=== PATIENT | female | born 1975 | race African-American/Black ===

== ENCOUNTER 2016-08-18 13:41 | Emergency (ER) | payer OTHER ==
[~2016-08-18] VITALS: Ht 167.6 cm; Wt 94.8 kg
[~2016-08-18 13:41] MED LIST: AUGMENTIN 875 M1 TAB PO; MOTRIN800 MG PO; PERCOCET 325 MG1 TA2 PO
--- NOTE | 2016-08-18 15:36 | ED EAR COMPLAINT ---
History of Present Illness General Chief Complaint: Ear Complaints Stated Complaint: PT IS HAVING PROBLEM WITH HER EARS Source: patient Exam Limitations: no limitations Vital Signs & Intake/Output Vital Signs & Intake/Output Vital Signs Date Time Temp Pulse Resp B/P B/P Pulse O2 O2 Flow FiO2 Mean Ox Delivery Rate 08/18 1614 97.9 80 18 122/86 98 Room Air 08/18 1349 97.8 84 16 117/82 97 Room Air ED Intake and Output 08/19 0000 08/18 1200 Intake Total Output Total Balance Patient 209 lb Weight Allergies Uncoded Allergies: ANIMAL FUR (UNKNOWN 10/27/11) POLLEN (UNKNOWN 10/27/11) Reconcile Medications Amoxicillin/Potassium Clav (Augmentin 875-125 Tablet) 875 MG-125 MG TABLET 1 TAB PO BID OTITIS MEDIA Ciprofloxacin HCl/Dexameth (Ciprodex Otic Suspension) 0.3 %-0.1 % DROPS.SUSP 4 GTT OT BID OTITIS EXTERNA Meloxicam 15 MG TABLET 1 TAB PO DAILY PRN PAIN Triage Note: PT COMPLAINS OF BILATERAL EAR PAIN FOR 4-5 DAYS, STATES THAT SHE NEEDS EARS IRRIGATED Triage Nurses Notes Reviewed? yes Onset: Gradual Duration: constant Timing: recent history Injury Environment: home Severity: moderate Severity Numbers: 5 : No Patient currently breastfeeds: No HPI: Patient is a 40-year-old female who presents emergency room stating that 3-4 days ago she began complaining of bilateral ear pain swelling and decreased hearing sensation where patient thought that she had wax buildup where she was using Debrox where she feels worse. Denies any trauma denies any ear discharge fever chills sore throat neck pain neck stiffness. (ZONIA LOPEZ) Past History Travel History Traveled to [place] past 21 day No Medical History Any Pertinent Medical History? 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 No (ZONIA LOPEZ) Review of Systems Review of Systems Constitutional: Reports: see HPI. EENTM: Reports: see HPI, ear pain. Respiratory: Reports: no symptoms. Cardiovascular: Reports: no symptoms. GI: Reports: no symptoms. Genitourinary: Reports: no symptoms. Musculoskeletal: Reports: no symptoms. Skin: Reports: no symptoms. Neurological/Psychological: Reports: no symptoms. Hematologic/Endocrine: Reports: no symptoms. Immunologic/Allergic: Reports: no symptoms. All Other Systems: Reviewed and Negative (ZONIA LOPEZ) Physical Exam Physical Exam General Appearance: no apparent distress, alert Ears: Bilateral: swelling, Tympanic red. Comments: HEENT: extraocular motion intact, no nystagmus. Pupils equally round and reactive to light and accommodation. Nose is atraumatic. . Pharynx normal. No swelling or edema. Noted tender external anatomy of bilateral ears upon tragus palpation and tenderness Bilateral external auditory canal noted to be swollen and tympanic membrane noted to be red and bulging Neck: Supple, no lymphadenopathy, normal range of motion without pain or tenderness Back: Nontender, no CVA tenderness. Cardiovascular: Regular rate and rhythms no murmurs rubs or gallops, normal JVP Respiratory: Chest nontender. No respiratory distress.breath sounds clear to auscultation bilaterally Extremity: No edema, no calf tenderness to palpation, normal and equal pulses. Neuro: Alert oriented x3, motor sensory normal, Skin: No appreciable rash on exposed skin, skin is warm and dry. Psych: Mood and affect is normal, memory and judgment is normal. (ZONIA LOPEZ) Progress Differential Diagnoses I considered the following diagnoses in my evaluation of the patient: [Otitis media, otitis externa, sinusitis, pharyngitis mastoiditis tympanic membrane rupture] Plan of Care: On examination patient has concerns of bilateral otitis media and otitis externa Initial ED EKG: none (ZONIA LOPEZ) Departure Departure Disposition: HOME OR SELF CARE Condition: Stable Clinical Impression Primary Impression: Otitis media Secondary Impressions: Otitis externa Referrals: CASSIE KENT APRN (PCP/Family) Additional Instructions: As discussed begin the prescription of meloxicam for pain and inflammation. Begin the prescription of Augmentin and Ciprodex for your ear infection. If no better in 3 days follow-up with primary care doctor. Prescription is waiting at [facility]. If symptoms worsen return to emergency room Departure Forms: Customer Survey General Discharge Information Prescriptions: Current Visit Scripts Amoxicillin/Potassium Clav (Augmentin 875-125 Tablet) 1 TAB PO BID #20 TAB Ciprofloxacin HCl/Dexameth (Ciprodex Otic Suspension) 4 GTT OT BID #1 BOT Meloxicam 1 TAB PO DAILY PRN PAIN #14 TAB (ZONIA LOPEZ) PA/DENTIST ATTENDANT Co-Sign Statement Statement: ED Attending supervision documentation- [] I saw and evaluated the patient. I have also reviewed all the pertinent lab results and diagnostic results. I agree with the findings and the plan of care as documented in the PA's/DENTIST ATTENDANT's documentation. [X] I have reviewed the ED Record and agree with the PA's/DENTIST ATTENDANT's documentation. [] Additions or exceptions (if any) to the PAs/DENTIST ATTENDANT's note and plan are summarized below: [] (BONNIE NICHOLS,DERRICK)
[2016-08-18] MEDS ORDERED: CIPRODEX OTIC7.5 ML OT (15:45)
[2016-08-18] MEDS ORDERED: AUGMENTIN 875-1 EACH PO (15:45)
[2016-08-18] MEDS ORDERED: MELOXICAM15 M1 PO (15:46)
[2016-08-18 16:14] VITALS: BP 122/86
== END 2016-08-18 16:16 ==
LOC: ERH 13:41
DX: H66.93 Otitis media, unspecified, bilateral (principal); H60.93 Unspecified otitis externa, bilateral; Z72.0 Tobacco use

== ENCOUNTER 2017-10-20 20:55 | Inpatient (IN) | payer OTHER ==
[~2017-10-20] VITALS: Ht 167.6 cm; Wt 96.6 kg
[~2017-10-20 20:55] MED LIST changes: +AUGMENTIN 875-1 EACH PO; +CIPRODEX OTIC7.5 ML OT; +IBUPROFEN600 M1 PO; +IBUPROFEN800 M1 PO; +MELOXICAM15 M1 PO; +TYLENOL WITH C1 EACH PO
--- NOTE | 2017-10-20 21:34 | ED DYSPNEA/ASTHMA COMPLAINT ---
History of Present Illness General Chief Complaint: General Adult Stated Complaint: "SICK, COUGH, DIFF BREATHING" PER PT Source: patient, old records Exam Limitations: no limitations Vital Signs & Intake/Output Vital Signs & Intake/Output Vital Signs Date Time Temp Pulse Resp B/P B/P Pulse O2 O2 Flow FiO2 Mean Ox Delivery Rate 10/21 0048 96 28 117/74 100 Aerosol Mask 10/21 0015 98 10/20 2215 98 Room Air 10/21 2211 98.1 88 22 115/77 99 Nasal 2.0L Cannula 10/20 2199 Nasal 2.0L Cannula 10/20 2129 30 ED Intake and Output 10/21 0000 10/20 1200 Intake Total 0 Output Total Balance 0 Intake, Oral 0 Patient 200 lb Weight Allergies Uncoded Allergies: ANIMAL FUR (UNKNOWN 10/27/11) POLLEN (UNKNOWN 10/27/11) Reconcile Medications Amoxicillin/Potassium Clav (Augmentin 875-125 Tablet) 875 MG-125 MG TABLET 1 TAB PO BID dental Amoxicillin/Potassium Clav (Augmentin 875-125 Tablet) 875 MG-125 MG TABLET 1 TAB PO BID OTITIS MEDIA Ciprofloxacin HCl/Dexameth (Ciprodex Otic Suspension) 0.3 %-0.1 % DROPS.SUSP 4 GTT OT BID OTITIS EXTERNA Ibuprofen 600 MG TABLET 1 TAB PO TID PRN PAIN with food Ibuprofen 800 MG TABLET 1 TAB PO TID pain Meloxicam 15 MG TABLET 1 TAB PO DAILY PRN PAIN Tylenol With Codeine (Tylenol With Codeine #3 Tablet) 300 MG-30 MG TABLET 1 TAB PO BIDP PRN toothache Triage Note: PT TO TRIAGE FOR COUGH, WHEEZING AND SOB. PT STATES REID HAS HAD COUHG FOR A WEEK BUT WHEN SHE WOKE UP THIS AFTER NOON IT WAS MUCH WORSE. Triage Nurses Notes Reviewed? yes Onset: Morning Duration: hour(s):, continues in ED, getting worse, waxing and waning Timing: recent history Severity: moderate, severe Activities at Onset: rest Prior Episodes/Possible Cause: allergen exposure Modifying Factors: Worsens With: movement. Associated Symptoms: cough, wheezing, weakness LMP (ages 10-50): unknown : No Patient currently breastfeeds: No HPI: The morning prior to admission patient complains of cough productive of mucoid sputum increasing wheezing and shortness of breath that resolved with inhalers and nebulizer treatment. She denies fever chills nausea vomiting diarrhea abdominal pain chest pain headache dysuria rash bleeding. Past History Travel History Traveled to [place] past 21 day No Medical History Any Pertinent Medical History? 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 No Review of Systems Review of Systems Constitutional: Reports: see HPI, weakness. EENTM: Reports: no symptoms. Respiratory: Reports: see HPI, cough, short of breath, sputum production, wheezing. Cardiovascular: Reports: no symptoms. GI: Reports: no symptoms. Genitourinary: Reports: no symptoms. Musculoskeletal: Reports: no symptoms. Skin: Reports: no symptoms. Neurological/Psychological: Reports: no symptoms. Hematologic/Endocrine: Reports: no symptoms. Immunologic/Allergic: Reports: no symptoms. All Other Systems: Reviewed and Negative Physical Exam Physical Exam General Appearance: well developed/nourished, alert, awake, anxious, severe distress, obese Head: atraumatic, normal appearance Eyes: Bilateral: normal appearance, PERRL, EOMI. Ears, Nose, Throat: normal pharynx, normal ENT inspection, hearing grossly normal Neck: normal inspection, supple, full range of motion, no midline tenderness Respiratory: chest non-tender, decreased breath sounds, wheezing, respiratory distress Cardiovascular: regular rate/rhythm, normal peripheral pulses, tachycardia, norml femoral pulses equa Peripheral Pulses: 4+ carotid (R), 4+ carotid (L) Gastrointestinal: normal bowel sounds, soft, non-tender, no organomegaly Extremities: normal inspection, normal capillary refill, normal range of motion, no edema Neurologic/Psych: no motor/sensory deficits, awake, alert, oriented x 3, normal gait, normal mood/affect, 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 No CVA/TIA Diagnosis No Sepsis Present: No Sepsis Focused Exam Completed? No Progress Differential Diagnosis: asthma, bronchitis, COPD, pneumonia Plan of Care: Orders Procedure Date/time Status Nothing by Mouth 10/21 B Active TRC EVALUATION (GEN) 10/22 127 Active OXYGEN SETUP (GEN) 10/22 127 Active Pathway - chart 10/22 127 Active House Staff 10/22 127 Active Code Status 10/22 127 Active VRE ACTIVE SURVIELLANCE 10/22 111 Active ACTIVE SURVEILLANCE NARES 10/21 011 Active URINE DRUGS OF ABUSE 10/21 41 Active URINE 10/21 41 Active Patient Data 10/21 0015 Active Admit to inpatient 10/21 0009 Active MAGNESIUM 10/21 000 Complete COMPREHENSIVE METABOLIC PANEL 10/21 8 Complete CBC WITHOUT DIFFERENTIAL 10/21 8 Complete VTE Mechanical Prophylaxis 10/21 UNK Active Vital Signs 10/21 UNK Active Activity/Ambulation 10/21 UNK Active Intake & Output 10/20 2210 Active Current Medications Sig/Jack Start time Last Medication Dose Stop Time Status Admin Sodium Chloride 1,000 ML DAILY 10/21 0900 AC (Normal Saline 0.9%) 10/22 2218 Laboratory Tests 10/21/17 0030: Anion Gap 13, Estimated GFR > 60, BUN/Creatinine Ratio 12.0, Glucose 123 H, Calcium 9.0, Magnesium 2.5 H, Total Bilirubin 0.3, AST 17, ALT 22, Alkaline Phosphatase 80, Total Protein 6.7, Albumin 3.9, Globulin 2.8, Albumin/Globulin Ratio 1.4, CBC w Diff MAN DIFF ORDERED, RBC 4.47, MCV 86.3, MCH 29.3, MCHC 33.9, RDW 13.4, MPV 8.5, Gran % 89.7 H, Lymphocytes % 9.1 L, Monocytes % 0.8 L, Eosinophils % 0.2, Basophils % 0.2, Absolute Granulocytes 11.1 H, Segmented Neutrophils 85 H, Absolute Lymphocytes 1.1 L, Lymphocytes 14 L, Monocytes 1 L, Absolute Monocytes 0.1, Absolute Eosinophils 0, Absolute Basophils 0, Platelet Estimate ADEQUATE, Normocytic RBCs VERIFIED, Normochromic RBCs VERIFIED , Fld Total RBCs Counted 100 Microbiology 10/22 111 UPPER RESP: Surveillance Culture - ORD 10/22 111 GI: Surveillance Culture - ORD Diagnostic Imaging: Viewed by Me: Radiology Read. Discussed w/RAD: Radiology Read. CXR Impression: Expiratory chest x-ray. Allowing for the low inspiration there is no acute abnormality. A follow-up PA lateral view of chest would be helpful. Initial ED EKG: none Rhythm Strip: sinus tachycardia Departure Departure Disposition: STILL A PATIENT Condition: Critical Clinical Impression Primary Impression: Status asthmaticus Referrals: Dinorah Grant APRN (PCP/Family) Departure Forms: Customer Survey General Discharge Information Admission Note Spoke With: Komal Barlow MD Documentation of Exam: Documentation of any treatments & extenuating circumstances including Concerns Regarding Discharge (functional status, medication knowledge or non-compliance, living conditions, etc.) that warrant an admission rather than observation: Serial beta agonist nebs IV steroids IV fluids ICU monitoring pulmonary evaluation continuing care discharge planning Critical Care Note Critical Care Note Critical Care Time: 30-74 min (45)
--- NOTE | 2017-10-20 23:28 | RADIOLOGY REPORT ---
EXAMINATION: XR PORTABLE CHEST CLINICAL INFORMATION: Cough and wheezing. COMPARISON: Chest x-ray 11/28/2016 TECHNIQUE: Portable frontal view of the chest was obtained. FINDINGS: Lung volume is low causing crowding of the bronchovascular markings, particularly at the lung bases. There is no focal consolidation allowing for the low respiratory effort. No pulmonary vascular congestion. There is no pleural effusion. IMPRESSION: Expiratory chest x-ray. Allowing for the low inspiration there is no acute abnormality. A follow-up PA lateral view of chest would be helpful.
--- NOTE | 2017-10-21 00:19 | History & Physical ---
DavidedemetriusleomairaMurtaza 10/21/17 0019: General Information and HPI MD Statement: I have seen and personally examined LISA OLIVAREZ and documented this H&P. The patient is a 42 year old F who presented with a patient stated chief complaint of [shortness of breath]. Source of Information: patient, old records Exam Limitations: clinical condition History of Present Illness: 42-year-old woman current heavy smoker, not on regular meds, with past medical history significant for asthma diagnosed in childhood and severe seasonal allergies coming in for evaluation of worsening shortness of breath since the past 1 week. Apparently she has been having worsening nonproductive cough since the past 1 week, and she is also been slowly feeling worsening chest tightness due to the increasing humidity and has been using her albuterol and her nebs more frequently over this past week. Prior to this she is only needed to use them every 1-2 months. States that her asthma has been very controlled and she follows up with her TRIPE SCRAPER every 4-6 months. Denies any history of intubation, ICU admission, daily aspirin intake, fever, chills, sick contacts. Allergies/Medications Allergies: Uncoded Allergies: ANIMAL FUR (UNKNOWN 10/27/11) POLLEN (UNKNOWN 10/27/11) Home Med list Amoxicillin/Potassium Clav (Augmentin 875-125 Tablet) 875 MG-125 MG TABLET 1 TAB PO BID dental Amoxicillin/Potassium Clav (Augmentin 875-125 Tablet) 875 MG-125 MG TABLET 1 TAB PO BID OTITIS MEDIA Ciprofloxacin HCl/Dexameth (Ciprodex Otic Suspension) 0.3 %-0.1 % DROPS.SUSP 4 GTT OT BID OTITIS EXTERNA Ibuprofen 600 MG TABLET 1 TAB PO TID PRN PAIN with food Ibuprofen 800 MG TABLET 1 TAB PO TID pain Meloxicam 15 MG TABLET 1 TAB PO DAILY PRN PAIN Tylenol With Codeine (Tylenol With Codeine #3 Tablet) 300 MG-30 MG TABLET 1 TAB PO BIDP PRN toothache Compliance With Home Meds: GOOD Past History Travel History Traveled to [place] past 21 day No Medical History Neurological: NONE EENT: NONE Cardiovascular: hyperlipidemia Respiratory: asthma Gastrointestinal: NONE Hepatic: NONE Renal: NONE Musculoskeletal: DDD Psychiatric: NONE Endocrine: NONE Blood Disorders: anemia Cancer(s): NONE 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 MOTHER (stroke). Psychosocial History Where do you live? Home Who Do You Live With? self Smoking Status: Current Everyday Smoker ETOH Use: denies use Illicit Drug Use: denies illicit drug use Review of Systems Review of Systems Constitutional: Reports: see HPI. Exam & Diagnostic Data Last 24 Hrs of Vital Signs/I&O Vital Signs Date Time Temp Pulse Resp B/P B/P Pulse O2 O2 Flow FiO2 Mean Ox Delivery Rate 10/21 0048 96 28 117/74 100 Aerosol Mask 10/21 0015 98 10/20 2214 98 Room Air 10/21 2211 98.1 88 22 115/77 99 Nasal 2.0L Cannula 10/20 2199 Nasal 2.0L Cannula 10/20 2129 30 Intake & Output 10/21 0800 10/21 0000 10/20 1600 Intake Total 0 Output Total Balance 0 Intake, Oral 0 Patient 200 lb Weight Physical Exam General Appearance Alert, Oriented X3, Moderate Distress HEENT Atraumatic, PERRLA, EOMI Cardiovascular Regular Rate, Normal S1, Normal S2 Lungs audible expiratory wheezes, diffuse expiratory coarse wheeze Abdomen Normal Bowel Sounds, Soft, No Tenderness Extremities No Edema Diagnostic Data CXR Results SERVICE DATE: 10/20/17 EXAM TYPE: RAD - XRY-PORTABLE CHEST XRAY FINDINGS: Lung volume is low causing crowding of the bronchovascular markings, particularly at the lung bases. There is no focal consolidation allowing for the low respiratory effort. No pulmonary vascular congestion. There is no pleural effusion. IMPRESSION: Expiratory chest x-ray. Allowing for the low inspiration there is no acute abnormality. A follow-up PA lateral view of chest would be helpful. Assessment/Plan Assessment: 42-year-old woman current heavy smoker, not on regular meds, with past medical history significant for asthma diagnosed in childhood and severe seasonal allergies coming in for evaluation of worsening shortness of breath since the past 1 week. CBCs significant for mild leukocytosis with left shift and no bandemia. Non-anion gap metabolic acidosis likely secondary to compensation. ED course: Assessment and plan: status asthmaticus likely secondary to environmental triggers We will admit to ICU for close monitoring as she is clinically in moderate respiratory distress unable to complete sentences. Vitals per protocol TRC/ATC nebs, follow daily peak flows We will continue with IV Solu-Medrol 60 mg twice daily Keep n.p.o. for now and reassess once clinically improved [facility] consult in am f/up IgE and CXR Apparently she had sleep study done about 1 month ago, and she does not know the results of. She currently does not follow a sql developer dba DVT prophylaxis with Lovenox Full code As Ranked By This Provider Problem List: 1. Status asthmaticus Core Measures/Misc (12/13) Acute Coronary Syndrome ACS Diagnosis: No Congestive Heart Failure Congestive Heart Failure Diagnosis No Cerebrovascular Accident CVA/TIA Diagnosis: No VTE (View Protocol) VTE Risk Factors Age>40 No Mechanical VTE Prophylaxis d/t N/A MechProphylax Ordered No VTE Pharm Prophylaxis d/t NA PharmProphylax ordered Sepsis (View protocol) Sepsis Present: No If YES complete Sepsis Event Note If YES complete Sepsis Event Note Komal Barlow MD 10/21/17 0331: Core Measures/Misc (12/13) Sepsis (View protocol) If YES complete Sepsis Event Note If YES complete Sepsis Event Note Attending MD Review Statement Attending Statement Attending MD Statement: examined this patient, discuss w/resident/PA/MANAGER SALT, agreed w/resident/PA/MANAGER SALT, reviewed EMR data (avail) Attending Assessment/Plan: 42F PMH asthma (never been intubated, hospitalized as a teenager), active smoker presenting with 1 day of progressive shortness of breath and wheezing consistent with asthma attack. No sick contacts or recent travel. Has had a dry cough for a week and felt ill, given Augmentin by PCP with no improvement. Uses nebulizer at home also with no improvement. Afebrile, stable vitals. Received 6 nebulizer treatments in ER, still significant wheezing and dyspnea. Plan: ICU, continuous nebulizer treatment, Solumedrol, critical care consult, repeat CXR, check IgE, sputum culture.
[2017-10-21 00:42] LABS: ABSOLUTE BASOPHIL COUNT 0 /CUMM (0.0-0.2); ABSOLUTE EOSINOPHIL COUNT 0 /CUMM (0.0-0.7); ABSOLUTE GRANULOCYTE CT 11.1 /CUMM (1.4-6.5); ABSOLUTE LYMPH COUNT 1.1 /CUMM (1.2-3.4); ABSOLUTE MONOCYTE COUNT 0.1 /CUMM (0.10-0.60); BASOPHIL % 0.2 % (0.0-2.0); EOSINOPHIL % 0.2 % (0-5); GRANULOCYTE % 89.7 % (42.2-75.2); HEMATOCRIT 38.6 % (37-47); MEAN CORPUSCULAR HGB 29.3 PG (27.0-31.0); MEAN CORPUSCULAR HGB CONC 33.9 G/DL (33.0-37.0); MEAN CORPUSCULAR VOLUME 86.3 FL (81.0-99.0); MEAN PLATELET VOLUME 8.5 FL (7.4-10.4); PLATELET COUNT 368 /CUMM (130-400); RBC DISTRIBUTION WIDTH 13.4 % (11.5-14.5); RED BLOOD CELL CT 4.47 /CUMM (4.20-5.40); WHITE BLOOD CELL COUNT 12.3 /CUMM (4.8-10.8)
[2017-10-21 02:00] VITALS: BP 130/70
[2017-10-21 08:00] VITALS: BP 120/68
[2017-10-21 08:22] LABS: ABSOLUTE BASOPHIL COUNT 0 /CUMM (0.0-0.2); ABSOLUTE EOSINOPHIL COUNT 0 /CUMM (0.0-0.7); ABSOLUTE GRANULOCYTE CT 13.1 /CUMM (1.4-6.5); ABSOLUTE LYMPH COUNT 0.5 /CUMM (1.2-3.4); ABSOLUTE MONOCYTE COUNT 0 /CUMM (0.10-0.60); BASOPHIL % 0 % (0.0-2.0); EOSINOPHIL % 0 % (0-5); GRANULOCYTE % 95.8 % (42.2-75.2); HEMATOCRIT 36.3 % (37-47); MEAN CORPUSCULAR HGB 29.2 PG (27.0-31.0); MEAN CORPUSCULAR HGB CONC 33.2 G/DL (33.0-37.0); MEAN CORPUSCULAR VOLUME 87.8 FL (81.0-99.0); MEAN PLATELET VOLUME 9.1 FL (7.4-10.4); PLATELET COUNT 338 /CUMM (130-400); RBC DISTRIBUTION WIDTH 13.5 % (11.5-14.5); RED BLOOD CELL CT 4.14 /CUMM (4.20-5.40); WHITE BLOOD CELL COUNT 13.7 /CUMM (4.8-10.8)
--- NOTE | 2017-10-21 08:54 | PN- Resident CRCU ---
Arslan NICHOLS,[facility] 10/21/17 0853: Subjective HPI/CRCU Issues: Asthma Exacerbation 24 Hour Events: No acute events overnight. Patient reports an improvement in her breathing with less wheezing but still feels significant short of breath with ambulation. Objective Vital Signs & I&O Last 8 Hrs of Vitals and I&O: Intake & Output 10/21 1600 Intake Total Output Total Balance Patient 207 lb Weight Weight Bed scale Measurement Method Exam General Appearance: alert, awake, moderate distress Head: atraumatic, normal appearance Respiratory: normal breath sounds, chest non-tender, mild wheezing Cardiovascular: regular rate/rhythm Gastrointestinal: soft, non-tender Extremities: no edema Cranial Nerves: normal hearing, normal speech Skin: intact, normal color Skin Temp/Moisture Exam: Warm/Dry Sepsis Skin Exam (color): Normal for Ethnicity Current Medications: Current Medications Sig/Jakc Start time Last Medication Dose Route Stop Time Status Admin Acetaminophen 1,000 MG ONCE ONE 10/21 0630 DC 10/21 N/A 1 UNIT IV 10/21 0644 0633 Al Hydroxide/Mg 30 ML ONCE ONE 10/21 1200 AC Hydroxide PO 10/21 1201 Albuterol Sulfate 3 ML EVERY 4 HRS/AWAKE 10/21 1200 AC INH Albuterol Sulfate 3 ML Q4H PRN 10/21 0215 DC 10/21 INH 0908 Albuterol Sulfate 2 PUF Q4 PRN 10/21 0200 AC INH Albuterol Sulfate 6 ML ONCE ONE 10/21 0015 DC 10/21 INH 10/21 0016 0014 Albuterol Sulfate 3 ML ONCE ONE 10/20 2245 DC 10/20 INH 10/20 2246 2302 Albuterol Sulfate 3 ML ONCE ONE 10/20 2145 DC 10/20 INH 10/20 2145 2140 Albuterol Sulfate 3 ML ONCE ONE 10/20 2130 DC 10/20 INH 10/20 2130 2134 Albuterol Sulfate 3 ML ONCE ONE 10/20 2130 DC 10/20 INH 10/20 2130 2130 Calcium Carbonate 500 MG ONCE ONE 10/21 1200 AC PO 10/21 1201 Enoxaparin Sodium 40 MG DAILY 10/21 0900 AC 10/21 SC 0915 Ipratropium [place] 2.5 ML EVERY 4 HRS/AWAKE 10/21 1200 AC INH Ipratropium [place] 2.5 ML ONCE ONE 10/20 2130 DC 10/20 INH 07/25 2131 2133 Ketorolac 30 MG ONCE ONE 10/21 0945 DC 10/21 Tromethamine IV 10/21 0946 1006 Ketorolac 0 .STK-MED ONE 10/21 0023 DC Tromethamine .ROUTE Ketorolac 30 MG ONCE ONE 10/21 0015 DC 10/21 Tromethamine IV 10/21 0016 0028 Magnesium Sulfate 1 GM Q2H 10/20 2200 DC 10/20 Dextrose/Water 100 ML IV 10/21 0029 2254 Methylprednisolone 60 MG Q8 10/21 1400 AC IV Methylprednisolone 60 MG Q12 10/21 0156 DC 10/21 IV 0916 Methylprednisolone 0 .STK-MED ONE 10/20 2145 DC .ROUTE Methylprednisolone 125 MG ONCE ONE 10/20 2130 DC 10/20 IV 10/20 2131 2154 Sodium Chloride 1,000 ML DAILY 10/21 0900 AC 10/21 IV 10/22 2219 0300 Sodium Chloride 1,000 ML BOLUS ONE 10/20 2130 DC 10/20 IV 10/20 2229 2154 Impression/Plan Impression/Problem List Impression: 42-year-old woman current heavy smoker, not on regular meds, with past medical history significant for asthma diagnosed in childhood and severe seasonal allergies coming in for evaluation of worsening shortness of breath since the past 1 week. Assessment: 1. Asthma Exacerbation Plan: * Continue monitoring in the ICU for now. * Increase Solu-Medrol to 80mg q8. * TRC/nebs as needed. * IgE levels - pending. * Sputum culture if able to provide a sample. * PPI * Diet: Regular * DVT Prophylaxis: SC Lovenox * Code: Full Code Problem List: 1. Asthma with exacerbation Pain Ratin Tomorrow's Labs & Rationales: CBC, BEP Preston NICHOLS,[facility] 10/21/17 1332: Impression/Plan Plan DVT/Prophylaxis: pharmacological Attending MD Review Statement Attending Sign Off Attending Cosign Statement: I have: examined this patient, reviewed [facility] EMR data, personally reviewd images, discussd w/resident/PA/LAB SCIENTIST, discussed mgmt plan w/valerio, discussed mgmt plan w/CM, discussed mgmt plan w/pt, agreed w/resident/PA/LAB SCIENTIST, amended to note. Other Findings: Seen and examined independently Exam as noted above SIGNIFICANT DATA Chest x-ray no significant. Previous chest x-ray was also unremarkable and in 2017 Blood work showed an anion gap of 15 bicarbonate was low however. Her tox screen was positive for marijuana white count was 13.7 previously she did have 6.2% eosinophils Previous cystic fibrosis gene panel was unremarkable IgE is pending Previous full pulmonary function tests showed mild obstructive lung disease with a reversible component suggestive of asthma with air trapping and hyperinflation diffusion capacity is normal IMPRESSION This is a lady with ongoing significant smoking with history of asthma since childhood who does seem to smoke marijuana as well, was on NSAIDs at home, not compliant with her regular outpatient asthma medicines comes here with Acute severe asthma. No history suggestive of active infection. May be worsening extrinsic asthma as she has had previous eosinophilia. 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
[2017-10-21 12:00] VITALS: BP 138/76
--- NOTE | 2017-10-21 14:39 | RADIOLOGY REPORT ---
EXAMINATION: XR PORTABLE CHEST CLINICAL INFORMATION: Cough, acute asthma exacerbation. Suspected pneumonia. COMPARISON: 11/28/2016 and 10/20/2017. TECHNIQUE: Portable frontal 80 degrees view of the chest was obtained. FINDINGS: Linear airspace opacity is noted at right lower, infrahilar medial lung field, may represent pneumonia. The remainder of the lung newsome are clear. The heart size is within normal limits. There is no pleural effusion present. The visualized upper abdomen is unremarkable. IMPRESSION: Linear airspace opacity at right infrahilar medial lung field, may represent atelectasis, infiltrate or combination thereof. Follow-up radiograph to document resolution is recommended.
[2017-10-21 16:00] VITALS: BP 124/60
[2017-10-21 20:00] VITALS: BP 130/68
[2017-10-22] VITALS: BP 126/80
[2017-10-22 06:32] LABS: ABSOLUTE BASOPHIL COUNT 0 /CUMM (0.0-0.2); ABSOLUTE EOSINOPHIL COUNT 0 /CUMM (0.0-0.7); ABSOLUTE LYMPH COUNT 0.8 /CUMM (1.2-3.4); EOSINOPHIL % 0 % (0-5)
--- NOTE | 2017-10-22 07:09 | PN- Resident CRCU ---
Subjective HPI/CRCU Issues: Asthma Exacerbation 24 Hour Events: No acute events overnight. She feels her breathing is better but currently complains of a severe headache due to her migraine. Objective Vital Signs & I&O Last 8 Hrs of Vitals and I&O: . Exam General Appearance: well developed/nourished, alert, awake, moderate distress Head: atraumatic, normal appearance Respiratory: normal breath sounds, chest non-tender, mild wheezing Cardiovascular: regular rate/rhythm Gastrointestinal: soft, non-tender Extremities: no edema Cranial Nerves: normal hearing, normal speech Skin: intact, normal color Skin Temp/Moisture Exam: Warm/Dry Sepsis Skin Exam (color): Normal for Ethnicity Current Medications: Current Medications Sig/Jack Start time Last Medication Dose Route Stop Time Status Admin Acetaminophen 1,000 MG ONCE ONE 10/22 0800 DC 10/22 N/A 1 UNIT IV 10/22 0814 0816 Acetaminophen 1,000 MG .STK-MED ONE 10/21 2313 DC IV 10/21 2314 Acetaminophen 1,000 MG ONCE ONE 10/21 1615 DC 10/21 PO 10/21 1616 1624 Acetaminophen/ 1 TAB ONCE ONE 10/22 0745 DC Butalbital/Caffeine PO 10/22 0746 Al Hydroxide/Mg 30 ML ONCE ONE 10/21 1200 DC 10/21 Hydroxide PO 10/21 1201 1241 Albuterol Sulfate 3 ML EVERY 4 HRS/AWAKE 10/21 1200 AC 10/22 INH 0910 Albuterol Sulfate 3 ML Q4H PRN 10/21 0215 DC 10/21 INH 0908 Albuterol Sulfate 2 PUF Q4 PRN 10/21 0200 AC INH Benzonatate 100 MG TID 10/21 2220 AC 10/22 PO 0652 Calcium Carbonate 500 MG ONCE ONE 10/21 1200 DC 10/21 PO 10/21 1201 1241 Enoxaparin Sodium 40 MG DAILY 10/21 0900 10/22 SC 0857 Guaifenesin/Codeine 10 ML Q4P PRN 10/22 0845 AC Phosphate PO Ibuprofen 800 MG ONCE PRN 10/22 0415 AC 10/22 PO 0422 Ibuprofen 800 MG .STK-MED ONE 10/21 2154 DC PO 10/21 2155 Ibuprofen 800 MG ONCE ONE 10/21 2030 DC 10/21 PO 10/21 2030 215 Ipratropium [place] 2.5 ML EVERY 4 HRS/AWAKE 10/21 1200 AC 10/22 INH 0909 Ketorolac 30 MG ONCE ONE 10/21 0945 DC 10/21 Tromethamine IV 10/21 0946 1006 Melatonin 5 MG AT BEDTIME 10/21 2100 AC 10/21 PO 2156 Methylprednisolone 60 MG 0900,1700,0100 10/21 1700 DC IV Methylprednisolone 80 MG 0900,1700,0100 10/21 1700 AC 10/22 IV 0857 Methylprednisolone 60 MG Q8 10/21 1400 DC IV Methylprednisolone 60 MG Q12 10/21 0156 DC 10/21 IV 0916 Omeprazole 40 MG DAILY AC 10/21 1350 AC 10/22 PO 0651 Sodium Chloride 1,000 ML DAILY 10/21 0900 DC 10/21 IV 10/22 2219 0300 Impression/Plan Impression/Problem List Impression: 42-year-old woman current heavy smoker, not on regular meds, with past medical history significant for asthma diagnosed in childhood and severe seasonal allergies coming in for evaluation of worsening shortness of breath since the past 1 week. Assessment: 1. Asthma Exacerbation Plan: * Stable to be downgraded to general medicine floor today. * Reduce Solu-Medrol to 60mg q8. * TRC/nebs as needed. * IgE levels - pending. * Sputum culture if able to provide a sample. * PPI * Tessalon pearls and Robitussin for cough prn. * Diet: Regular * DVT Prophylaxis: SC Lovenox * Code: Full Code Problem List: 1. Asthma with exacerbation Pain Ratin Tomorrow's Labs & Rationales: none Plan DVT/Prophylaxis: pharmacological
[2017-10-22 07:15] LABS: ABSOLUTE GRANULOCYTE CT 27.9 /CUMM (1.4-6.5); ABSOLUTE MONOCYTE COUNT 0.5 /CUMM (0.10-0.60); BASOPHIL % 0 % (0.0-2.0); HEMATOCRIT 37.2 % (37-47); MEAN CORPUSCULAR HGB 29.1 PG (27.0-31.0); MEAN CORPUSCULAR HGB CONC 32.8 G/DL (33.0-37.0); MEAN CORPUSCULAR VOLUME 88.6 FL (81.0-99.0); MEAN PLATELET VOLUME 9.3 FL (7.4-10.4); PLATELET COUNT 349 /CUMM (130-400); RBC DISTRIBUTION WIDTH 13.8 % (11.5-14.5)
[2017-10-22 07:30] LABS: WHITE BLOOD CELL COUNT 29.3 /CUMM (4.8-10.8)
[2017-10-22 07:42] LABS: GRANULOCYTE % 95.2 % (42.2-75.2)
[2017-10-22 08:00] VITALS: BP 110/70
--- NOTE | 2017-10-22 08:23 | PN- CRCU ---
Subjective HPI/Critical Care Issues: The patient is awake and alert. She reports feeling significantly improved. She does complain of a migraine headache which she has had at home in the past. Her coughing, shortness of breath and wheezing are improved. There were no overnight events reported. Objective Current Medications: Current Medications Sig/Jack Start time Last Medication Dose Route Stop Time Status Admin Acetaminophen 1,000 MG ONCE ONE 10/22 0800 DC 10/22 N/A 1 UNIT IV 10/22 0814 0816 Acetaminophen 1,000 MG .STK-MED ONE 10/21 2313 DC IV 10/21 2314 Acetaminophen 1,000 MG ONCE ONE 10/21 1615 DC 10/21 PO 10/21 1616 1624 Acetaminophen/ 1 TAB ONCE ONE 10/22 0745 DC Butalbital/Caffeine PO 10/22 0746 Al Hydroxide/Mg 30 ML ONCE ONE 10/21 1200 DC 10/21 Hydroxide PO 10/21 1201 1241 Albuterol Sulfate 3 ML EVERY 4 HRS/AWAKE 10/21 1200 10/22 INH 0430 Albuterol Sulfate 3 ML Q4H PRN 10/21 0215 DC 10/21 INH 0908 Albuterol Sulfate 2 PUF Q4 PRN 10/21 0200 AC INH Benzonatate 100 MG TID 10/21 2220 AC 10/22 PO 0652 Calcium Carbonate 500 MG ONCE ONE 10/21 1200 DC 10/21 PO 10/21 1201 1241 Enoxaparin Sodium 40 MG DAILY 10/21 0900 10/21 SC 0915 Ibuprofen 800 MG ONCE PRN 10/22 0415 10/22 PO 0422 Ibuprofen 800 MG .STK-MED ONE 10/21 2154 DC PO 10/21 2155 Ibuprofen 800 MG ONCE ONE 10/21 2030 DC 10/21 PO 10/21 2031 2157 Ipratropium [place] 2.5 ML EVERY 4 HRS/AWAKE 10/21 1200 AC 10/22 INH 0430 Ketorolac 30 MG ONCE ONE 10/21 0945 MA 10/21 Tromethamine IV 10/21 0946 1006 Melatonin 5 MG AT BEDTIME 10/21 2100 AC 10/21 PO 2156 Methylprednisolone 60 MG 0900,1700,0100 10/21 1700 DC IV Methylprednisolone 80 MG 0900,1700,0100 10/21 1700 10/22 IV 0005 Methylprednisolone 60 MG Q8 10/21 1400 DC IV Methylprednisolone 60 MG Q12 10/21 0156 DC 10/21 IV 0916 Omeprazole 40 MG DAILY AC 10/21 1350 AC 10/22 PO 0651 Sodium Chloride 1,000 ML DAILY 10/21 0900 DC 10/21 IV 10/22 2219 0300 Vital Signs & I&O Last 24 Hrs of Vitals and I&O: Vital Signs Date Time Temp Pulse Resp B/P B/P Pulse O2 O2 Flow FiO2 Mean Ox Delivery Rate 10/22 0451 99 Room Air 10/22 0400 95 Room Air 10/22 0000 98 Room Air 10/22 0000 98.4 100 22 126/80 98 Room Air 10/21 2000 97.8 94 18 130/68 98 Room Air 10/21 1602 97 Room Air Room Air 10/21 1600 98.0 100 18 124/60 94 Room Air 10/21 1200 98.0 100 24 138/76 96 Room Air 10/21 1109 Room Air 10/21 0840 97 Room Air Intake & Output 10/22 1600 10/22 0800 10/22 0000 Intake Total 240 920 Output Total Balance 240 920 Intake, Oral 240 920 Patient 213 lb Weight Weight Bed scale Measurement Method Exam General Appearance: no apparent distress, alert, awake, comfortable Head: atraumatic, normal appearance Neck: supple Respiratory: no respiratory distress, wheezing Cardiovascular: regular rate/rhythm Abdomen: normal bowel sounds, soft, non-tender Extremities: no edema Skin: intact, normal color, warm/dry Results Last 24 Hrs of Lab Results: Laboratory Tests 10/22/17 0512: RBC 4.20, MCV 88.6, MCH 29.1, MCHC 32.8 L, RDW 13.8, MPV 9.3, Gran % 95.2 H, Lymphocytes % 2.9 L, Monocytes % 1.9, Eosinophils % 0, Basophils % 0, Absolute Granulocytes 27.9 H, Absolute Lymphocytes 0.8 L, Absolute Monocytes 0.5, Absolute Eosinophils 0, Absolute Basophils 0 10/22/17 0357: Anion Gap 16, Estimated GFR > 60, BUN/Creatinine Ratio 12.0, Magnesium 2.3 Impression/Plan Impression/Plan Impression/Plan: 1. Asthma exacerbation. 2. Headache without any neurologic issues. Recommendations: * Reduce Solu-Medrol to 60mg q8. * TRC/nebs as needed. * Follow up IgE levels. * Sputum culture if able to provide a sample. * PPI. * Tessalon pearls and Robitussin for cough prn. * Diet: Regular. * DVT Prophylaxis: SC Lovenox. * Code: Full Code. * Stable to be downgraded to general medicine floor today.
[2017-10-22 15:43] VITALS: BP 124/92
[2017-10-22 22:03] VITALS: BP 130/92
[2017-10-23 06:27] VITALS: BP 134/94
--- NOTE | 2017-10-23 07:35 | PN- Housestaff ---
See Addendum Subjective Follow-up For: Status Asthamticus Subjective: No acute events overnight, afebrile. Patient contiues to have dry cough, says robitussim with codeine helps but only lasts for about 1 hour or so, cough is leading to abdominal muscle, back muscle and rib pain. Review of Systems Constitutional: Reports: see HPI. Objective Last 24 Hrs of Vital Signs/I&O Vital Signs Date Time Temp Pulse Resp B/P B/P Pulse O2 O2 Flow FiO2 Mean Ox Delivery Rate 10/23 0627 98.2 92 20 134/94 95 10/23 0152 97 Room Air 10/22 2203 99.4 92 20 130/92 97 Room Air 10/22 1611 98 Room Air 10/22 1600 Room Air 10/22 1543 98.7 107 25 124/92 97 10/22 1200 98 Room Air 10/22 0910 98 Room Air Room Air 10/22 0800 98 Room Air 10/22 0800 98.0 84 20 110/70 98 Room Air Intake & Output 10/23 0800 10/23 0000 10/22 1600 Intake Total 1080 Output Total Balance 1080 Intake, IV 120 Intake, Oral 960 Physical Exam General Appearance: Alert, Oriented X3, Cooperative, Mild Distress HEENT: Atraumatic, EOMI Cardiovascular: Regular Rate, Normal S1, Normal S2 Lungs: Normal Air Movement, mild expiratory wheezing noted throughout lung newsome Abdomen: Normal Bowel Sounds, Soft, No Tenderness Assessment/Plan Assessment: 42-year-old woman current heavy smoker, not on regular meds, with past medical history significant for asthma diagnosed in childhood and severe seasonal allergies coming in for evaluation of worsening shortness of breath since the past 1 week. Problem List: 1. Asthma Exacerbation 2. Leukocytosis #Asthma Exacerbation: History of asthma, severe exacerbation due to environmental factors. Elevated (253) IgE levels. -Continue steroid taper -add symbicort 160/2.5mcg 2 puffs BID -Add singular 10mg daily -continue TRC/neds as needed -Continue Robitussim w/ Codeine Q2 #Leukocytosis: Recent elevation in WBC up to 29.3, up from 12.3 at admission. most likely 2/2 increased steroid administration -Continue to monitor CBC Diet: Regular DVT Prophylaxis: SC Lovenox Code Status: Full Code Problem List: 1. Status asthmaticus Pain Ratin Pain Location: ribs, abdomen, back Pain Goal: Remain pain free Pain Plan: tylenol Tomorrow's Labs & Rationales: cbc
--- NOTE | 2017-10-23 08:38 | PN- Pulmonary ---
Subjective HPI/Critical Care Issues: The patient is awake and alert. She continues to complain of ongoing cough, wheezing and shortness of breath. She also is complaining of a migraine headache today. Objective Current Medications: Current Medications Sig/Jack Start time Last Medication Dose Route Stop Time Status Admin Acetaminophen 1,000 MG ONCE ONE 10/23 0730 [place] 10/23 N/A 1 UNIT IV 10/23 0744 0746 Acetaminophen 1,000 MG ONCE ONE 10/22 1900 DC 10/22 N/A 1 UNIT IV 10/22 1914 1903 Acetaminophen 500 MG Q6P PRN 10/22 1830 10/23 PO 0505 Albuterol Sulfate 3 ML EVERY 4 HRS/AWAKE 10/21 1200 10/23 INH 0516 Albuterol Sulfate 2 PUF Q4 PRN 10/21 0200 10/22 INH 1515 Benzonatate 100 MG TID 10/21 2220 10/23 PO 0746 Enoxaparin Sodium 40 MG DAILY 10/21 0900 10/23 SC 0746 Guaifenesin/Codeine 10 ML Q2P PRN 10/23 0733 10/23 Phosphate PO 0746 Guaifenesin/Codeine 10 ML Q4P PRN 10/22 0845 OK 10/23 Phosphate PO 0500 Ibuprofen 400 MG ONCE ONE 10/22 1645 DC 10/22 PO 10/22 1646 1658 Ibuprofen 800 MG ONCE PRN 10/22 0415 OK 10/22 PO 0422 Ipratropium [place] 2.5 ML EVERY 4 HRS/AWAKE 10/21 1200 10/23 INH 0515 Melatonin 5 MG AT BEDTIME 10/21 2100 10/22 PO 2042 Methylprednisolone 60 MG 0900,1700,0100 10/22 1700 10/23 IV 0747 Methylprednisolone 40 MG .STK-MED ONE 10/22 1652 DC IM 10/22 1653 Methylprednisolone 40 MG .STK-MED ONE 10/22 1647 DC IM 10/22 1648 Methylprednisolone 80 MG 0900,1700,0100 10/21 1700 OK 10/22 IV 0857 Nicotine 21 MG DAILY 10/22 1045 10/23 TOP 0746 Omeprazole 40 MG DAILY AC 10/21 1350 10/23 PO 0501 Oxycodone/ 1 TAB ONCE PRN 10/23 0730 AC Acetaminophen PO Oxycodone/ 1 TAB ONCE ONE 10/22 2029 DC 10/22 Acetaminophen PO 10/22 Vital Signs & I&O Last 24 Hrs of Vitals and I&O: Vital Signs Date Time Temp Pulse Resp B/P B/P Pulse O2 O2 Flow FiO2 Mean Ox Delivery Rate 10/23 0627 98.2 92 20 134/94 95 10/23 0152 97 Room Air 10/22 2203 99.4 92 20 130/92 97 Room Air 10/22 1611 98 Room Air 10/22 1600 Room Air 10/22 1543 98.7 107 25 124/92 97 10/22 1200 98 Room Air 10/22 0910 98 Room Air Room Air Exam General Appearance: well developed/nourished, alert, awake, moderate distress Head: atraumatic, normal appearance Respiratory: normal breath sounds, chest non-tender, mild wheezing Cardiovascular: regular rate/rhythm Gastrointestinal: soft, non-tender Extremities: no edema Cranial Nerves: normal hearing, normal speech Skin: intact, normal color Skin Temp/Moisture Exam: Warm/Dry Sepsis Skin Exam (color): Normal for Ethnicity Results Last 24 Hrs of Micro Results: All cultures negative to date. Impression/Plan Impression/Plan Impression/Plan: 1. Asthma exacerbation. 2. Headache without any neurologic issues. Recommendations: * Add Symbicort 160/2.5 mcg, 2 puffs every 12 hours. * Add Singulair 10 mg daily. * Solu-Medrol * TRC/nebs as needed. * IgE levels - pending. * Sputum culture if able to provide a sample. * PPI. * Tessalon pearls and Robitussin for cough prn. * Diet: Regular * DVT Prophylaxis: SC Lovenox * Code: Full Code
--- NOTE | 2017-10-23 09:21 | PN- Pulmonary ---
Subjective HPI/Critical Care Issues: The patient is awake and alert. She reports having ongoing intermittent wheezing. She remains concerned over her ongoing dry cough. She continues to complain of headache which is improved with Percocet. She also has body aches related to her cough. There were no overnight events reported. Objective Current Medications: Current Medications Sig/Jack Start time Last Medication Dose Route Stop Time Status Admin Acetaminophen 1,000 MG ONCE ONE 10/23 0730 [place] 10/23 N/A 1 UNIT IV 10/23 0744 0746 Acetaminophen 1,000 MG ONCE ONE 10/22 1900 DC 10/22 N/A 1 UNIT IV 10/22 1914 1903 Acetaminophen 500 MG Q6P PRN 10/22 1830 10/23 PO 0505 Albuterol Sulfate 3 ML EVERY 4 HRS/AWAKE 10/21 1200 AC 10/23 INH 0850 Albuterol Sulfate 2 PUF Q4 PRN 10/21 0200 10/22 INH 1515 Benzonatate 100 MG TID 10/21 2220 10/23 PO 0746 Enoxaparin Sodium 40 MG DAILY 10/21 0900 AC 10/23 SC 0746 Guaifenesin/Codeine 10 ML Q2P PRN 10/23 0733 AC 10/23 Phosphate PO 0746 Guaifenesin/Codeine 10 ML Q4P PRN 10/22 0845 [place] 10/23 Phosphate PO 0500 Ibuprofen 400 MG ONCE ONE 10/22 1645 DC 10/22 PO 10/22 1646 1658 Ibuprofen 800 MG ONCE PRN 10/22 0415 [place] 10/22 PO 0422 Ipratropium [place] 2.5 ML EVERY 4 HRS/AWAKE 10/21 1200 10/23 INH 0850 Melatonin 5 MG AT BEDTIME 10/21 2100 AC 10/22 PO 2042 Methylprednisolone 60 MG 0900,1700,0100 10/22 1700 10/23 IV 0747 Methylprednisolone 40 MG .STK-MED ONE 10/22 1652 DC IM 10/22 1653 Methylprednisolone 40 MG .STK-MED ONE 10/22 1647 DC IM 10/22 1648 Methylprednisolone 80 MG 0900,1700,0100 10/21 1700 [place] 10/22 IV 0857 Nicotine 21 MG DAILY 10/22 1045 10/23 TOP 0746 Omeprazole 40 MG DAILY AC 10/21 1350 10/23 PO 0501 Oxycodone/ 1 TAB ONCE PRN 10/23 0730 AC Acetaminophen PO Oxycodone/ 1 TAB ONCE ONE 10/22 2030 DC 10/22 Acetaminophen PO 10/22 Vital Signs & I&O Last 24 Hrs of Vitals and I&O: Vital Signs Date Time Temp Pulse Resp B/P B/P Pulse O2 O2 Flow FiO2 Mean Ox Delivery Rate 10/23 0627 98.2 92 20 134/94 95 10/23 0152 97 Room Air 10/22 2203 99.4 92 20 130/92 97 Room Air 10/22 1611 98 Room Air 10/22 1600 Room Air 10/22 1543 98.7 107 25 124/92 97 10/22 1200 98 Room Air Exam General Appearance: no apparent distress, alert, awake, comfortable Head: atraumatic, normal appearance Neck: supple Respiratory: no respiratory distress, wheezing Cardiovascular: regular rate/rhythm Abdomen: normal bowel sounds, soft, non-tender Extremities: no edema Skin: intact, normal color, warm/dry Results Last 24 Hrs of Lab Results: None available. Impression/Plan Impression/Plan Impression/Plan: 1. Asthma exacerbation. 2. Headache without any neurologic issues. History of migraine headaches. Recommendations: * Add Symbicort 160/2.5 mcg, 2 puffs every 12 hours. * Add Singulair 10 mg daily. * Solu-Medrol -continue at current dosing as patient feels this is helping her to improve * TRC/nebs as needed. * IgE levels - follow up. * PPI. * Tessalon pearls and Robitussin for cough prn. * Continue with pain control but avoid oversedation. * DVT Prophylaxis: SC Lovenox * Continue all supportive care.
[2017-10-23 11:53] LABS: ABSOLUTE BASOPHIL COUNT 0 /CUMM (0.0-0.2); ABSOLUTE EOSINOPHIL COUNT 0 /CUMM (0.0-0.7); ABSOLUTE GRANULOCYTE CT 20.5 /CUMM (1.4-6.5); ABSOLUTE LYMPH COUNT 0.7 /CUMM (1.2-3.4); ABSOLUTE MONOCYTE COUNT 0.3 /CUMM (0.10-0.60); BASOPHIL % 0.2 % (0.0-2.0); EOSINOPHIL % 0 % (0-5); HEMATOCRIT 36.1 % (37-47); MEAN CORPUSCULAR HGB 29.2 PG (27.0-31.0); MEAN CORPUSCULAR HGB CONC 33.1 G/DL (33.0-37.0); MEAN CORPUSCULAR VOLUME 88.2 FL (81.0-99.0); MEAN PLATELET VOLUME 9.3 FL (7.4-10.4); PLATELET COUNT 333 /CUMM (130-400); RBC DISTRIBUTION WIDTH 14.1 % (11.5-14.5); RED BLOOD CELL CT 4.09 /CUMM (4.20-5.40); WHITE BLOOD CELL COUNT 21.6 /CUMM (4.8-10.8)
[2017-10-23 12:48] LABS: GRANULOCYTE % 94.9 % (42.2-75.2)
[2017-10-23 14:53] VITALS: BP 110/84
[2017-10-23 22:38] VITALS: BP 150/98
[2017-10-24 06:48] VITALS: BP 134/86
[2017-10-24 08:35] LABS: ABSOLUTE BASOPHIL COUNT 0 /CUMM (0.0-0.2); ABSOLUTE EOSINOPHIL COUNT 0 /CUMM (0.0-0.7); ABSOLUTE GRANULOCYTE CT 16.6 /CUMM (1.4-6.5); ABSOLUTE LYMPH COUNT 0.8 /CUMM (1.2-3.4); ABSOLUTE MONOCYTE COUNT 0.6 /CUMM (0.10-0.60); BASOPHIL % 0.1 % (0.0-2.0); EOSINOPHIL % 0 % (0-5); HEMATOCRIT 36.2 % (37-47); MEAN CORPUSCULAR HGB 29.6 PG (27.0-31.0); MEAN CORPUSCULAR HGB CONC 33.8 G/DL (33.0-37.0); MEAN CORPUSCULAR VOLUME 87.5 FL (81.0-99.0); MEAN PLATELET VOLUME 9.5 FL (7.4-10.4); PLATELET COUNT 355 /CUMM (130-400); RED BLOOD CELL CT 4.13 /CUMM (4.20-5.40)
--- NOTE | 2017-10-24 09:21 | PN- Housestaff ---
See Addendum Subjective Follow-up For: asthma exacerbation Complaints: fatigue headache Subjective: Patient reports headache since last night. She states it is behind her eyes and back of her neck. She reports SOB with movement. Denies fever, chills, n/v/d, chest pain, abdominal pain. Review of Systems Constitutional: Reports: see HPI. Objective Last 24 Hrs of Vital Signs/I&O Vital Signs Date Time Temp Pulse Resp B/P B/P Pulse O2 O2 Flow FiO2 Mean Ox Delivery Rate 10/24 0917 97 Room Air 10/24 0800 95 Room Air 10/24 0648 98.4 82 20 134/86 96 10/24 0425 Room Air 10/24 0000 Room Air 10/23 2238 98.4 98 18 150/98 98 Room Air 10/23 1955 95 Room Air 10/23 1600 Room Air 10/23 1453 98.2 92 20 110/84 96 Room Air Intake & Output 10/24 1600 10/24 0800 10/24 0000 Intake Total 950 Output Total Balance 950 Intake, IV 100 Intake, Oral 850 Physical Exam General Appearance: Alert, Oriented X3, Cooperative, No Acute Distress, appears exhausted. able to speak in full sentences Skin: No Rashes Skin Temp/Moisture Exam: Warm/Dry HEENT: Atraumatic, PERRLA Neck: Supple Cardiovascular: Regular Rate, Normal S1, Normal S2 Lungs: expiratory wheezes throughout Abdomen: Normal Bowel Sounds, Soft, No Tenderness Extremities: No Edema, Normal Pulses Assessment/Plan Assessment: 42-year-old woman current heavy smoker, not on regular meds, with past medical history significant for asthma diagnosed in childhood and severe seasonal allergies coming in for evaluation of worsening shortness of breath since the past 1 week. Problem List: 1. Asthma Exacerbation 2. Leukocytosis 3. Headache #Asthma Exacerbation: History of asthma, severe exacerbation due to environmental factors. Elevated (253) IgE levels. -Continue steroid taper -add symbicort 160/2.5mcg 2 puffs BID -Add singular 10mg daily -continue TRC/neds as needed -Continue Robitussim w/ Codeine Q3 -Pulm consult: Evaluate sputum C&S and eosinophils. Continue IV steroids. Repeat chest x-ray with persistent symptoms. Assess urinary antigen for Legionella #Leukocytosis: Recent elevation in WBC up to 18 today, up from 12.3 at admission. most likely 2/2 increased steroid administration -Continue to monitor CBC #Headache-possible lack of sleep vs tension vs h/o headache;stress induced -tylenol did not help -Fioricet Diet: Regular DVT Prophylaxis: SC Lovenox Code Status: Full Code Problem List: 1. Asthma with exacerbation Pain Ratin Pain Location: head Pain Goal: Pain 4 or less Pain Plan: see a/p Tomorrow's Labs & Rationales: cbc
[2017-10-24 09:46] LABS: GRANULOCYTE % 92.3 % (42.2-75.2)
--- NOTE | 2017-10-24 10:05 | PN- Pulmonary ---
Subjective HPI/Critical Care Issues: Patient continues to have complaints of cough and mild shortness of breath though she remains comfortable on room air Objective Current Medications: Current Medications Sig/Jack Start time Last Medication Dose Route Stop Time Status Admin Acetaminophen 500 MG Q6P PRN 10/22 1830 AC 10/23 PO 1439 Albuterol Sulfate 3 ML EVERY 4 HRS/AWAKE 10/21 1200 AC 10/24 INH 0914 Albuterol Sulfate 2 PUF Q4 PRN 10/21 0200 AC 10/22 INH 1515 Benzocaine/Menthol 1 KAITLYNN Q1 NEEDED PRN 10/23 1445 PO Benzonatate 100 MG TID 10/21 2220 AC 10/24 PO 0834 Budesonide/ 2 PUF BID 10/23 1022 AC 10/24 Formoterol Fumarate INH 0835 Enoxaparin Sodium 40 MG DAILY 10/21 0900 AC 10/24 SC 0834 Guaifenesin/Codeine 10 ML Q2P PRN 10/23 0733 AC 10/24 Phosphate PO 0834 Ipratropium [place] 2.5 ML EVERY 4 HRS/AWAKE 10/21 1200 AC 10/24 INH 0914 Melatonin 5 MG AT BEDTIME 10/21 2100 AC 10/23 PO 2121 Methylprednisolone 40 MG 0900,1700,0100 10/23 1700 AC 10/24 IV 0834 Methylprednisolone 60 MG 0900,1700,0100 10/22 1700 DC 10/23 IV 0747 Montelukast Sodium 10 MG AT BEDTIME 10/23 2100 AC 10/23 PO 2121 Nicotine 21 MG DAILY 10/22 1045 AC 10/24 TOP 0834 Omeprazole 40 MG DAILY AC 10/21 1350 AC 10/24 PO 0531 Oxycodone/ 1 TAB ONCE PRN 10/23 0730 AC 10/23 Acetaminophen PO 2121 Tramadol HCl 50 MG ONCE ONE 10/24 0530 DC 10/24 PO 10/24 0531 0532 Tramadol HCl 50 MG ONCE ONE 10/23 1600 DC 10/23 PO 10/23 1601 1601 Vital Signs & I&O Last 24 Hrs of Vitals and I&O: Room air oxygen saturation 97% exam for chest shows rare expiratory wheezing cardiac exam shows regular S1 and S2 without murmurs Vital Signs Date Time Temp Pulse Resp B/P B/P Pulse O2 O2 Flow FiO2 Mean Ox Delivery Rate 10/24 0917 97 Room Air 10/24 0800 95 Room Air 10/24 0648 98.4 82 20 134/86 96 10/24 0425 Room Air 10/24 0000 Room Air 10/23 2238 98.4 98 18 150/98 98 Room Air 10/23 1955 95 Room Air 10/23 1600 Room Air 10/23 1453 98.2 92 20 110/84 96 Room Air Intake & Output 10/24 1600 10/24 0800 10/24 0000 Intake Total 950 Output Total Balance 950 Intake, IV 100 Intake, Oral 850 Impression/Plan Impression/Plan Impression/Plan: 42-year-old being treated for asthma with persistent cough. Recommendations: Evaluate sputum C&S and eosinophils. Continue IV steroids. Repeat chest x-ray with persistent symptoms. Assess urinary antigen for Legionella
[2017-10-24 14:56] VITALS: BP 124/74
[2017-10-24 21:38] VITALS: BP 142/92
[2017-10-24 22:45] VITALS: BP 132/70
--- NOTE | 2017-10-25 03:57 | Event Note ---
Event Note Event Note: I was called in by the nurse to assess the patient for intractable cough leading to generalized pain all over her body. The patient was admitted for asthma exacerbation and was transferred to the floor due to improvement in her symptoms. On assessing, the patient looked uncomforatable and tired. She was disoriented vs hallucinating thinking her friend "Jose is sleeping inside the curtain", who actually happens to be her nurse. The patient was coughing. On ausculatation, she did have wheezing but her saturation had consistently been in the late 90s. On discussion with Dr. Sandoval, we decided to hold off on her opioid meds suspecting they were causing her to be disoriented. The patient calmed down after talkig to her and has been keeping well so far.
[2017-10-25 06:58] VITALS: BP 140/96
--- NOTE | 2017-10-25 07:10 | PN- Housestaff ---
See Addendum Subjective Follow-up For: Asthma exacerbation Subjective: Afebrile overnight. Patient had one episode of hallucination overnight, was stating that the nurse was in the curtains. Patient does not recall the event, was informed of it in the morning. Patient is complaining of abdominal pain secondary to her coughing. Denies fever, shortness of breath, chest pain, chills, night sweats, dizziness, headaches, blurry vision. Review of Systems Constitutional: Reports: see HPI. Objective Last 24 Hrs of Vital Signs/I&O Vital Signs Date Time Temp Pulse Resp B/P B/P Pulse O2 O2 Flow FiO2 Mean Ox Delivery Rate 10/25 0700 Room Air 10/25 0658 98.2 80 20 140/96 96 10/25 0000 96 Room Air 10/24 2245 98.5 74 20 132/70 98 Nasal 2.0L Cannula 10/24 2138 98.0 96 18 142/92 96 Room Air 10/24 1649 97 Room Air 10/24 1600 Room Air Room Air 10/24 1456 98.4 110 20 124/74 97 Room Air 10/24 0917 97 Room Air 10/24 0800 95 Room Air Intake & Output 10/25 0800 10/25 0000 10/24 1600 Intake Total 180 480 600 Output Total Balance 180 480 600 Intake, IV 50 Intake, Oral 180 480 550 Number 0 Bowel Movements Physical Exam General Appearance: Alert, Oriented X3 Cardiovascular: Regular Rate, Normal S1, Normal S2 Lungs: Normal Air Movement, minimal expiratory wheezing appreciated Abdomen: Normal Bowel Sounds, Soft, generalized tenderness to palpation Extremities: No Cyanosis, No Edema, Normal Pulses Vascular: Normal Pulses, Pulses Symmetrical Current Medications: Current Medications Sig/Jack Start time Last Medication Dose Route Stop Time Status Admin Acetaminophen 1,000 MG ONCE ONE 10/25 0645 DC 10/25 N/A 1 UNIT IV 10/25 0659 0747 Acetaminophen 500 MG Q6P PRN 10/22 1830 AC 10/25 PO 0329 Acetaminophen/ 1 TAB Q4P PRN 10/24 1100 AC 10/25 Butalbital/Caffeine PO 0745 Albuterol Sulfate 3 ML EVERY 4 HRS/AWAKE 10/21 1200 AC 10/25 INH 0645 Albuterol Sulfate 2 PUF Q4 PRN 10/21 0200 AC 10/24 INH 1339 Benzocaine/Menthol 1 KAITLYNN Q1 NEEDED PRN 10/23 1445 AC PO Benzonatate 100 MG TID 10/21 2220 AC 10/25 PO 0818 Budesonide/ 2 PUF BID 10/23 1022 AC 10/25 Formoterol Fumarate INH 0818 Diphenhydramine HCl 25 MG Q6P PRN 10/25 1000 AC PO Docusate Sodium 100 MG DAILY 10/24 2345 AC 10/25 PO 0028 Enoxaparin Sodium 40 MG DAILY 10/21 0900 AC 10/24 SC 0834 Guaifenesin/Codeine 10 ML Q4 PRN 10/25 0954 AC Phosphate PO Guaifenesin/Codeine 10 ML Q3P PRN 10/24 1245 DC 10/25 [place] 0608 Guaifenesin/Codeine 10 ML Q2P PRN 10/23 0733 DC 10/24 Phosphate PO 0834 Ipratropium [place] 2.5 ML EVERY 4 HRS/AWAKE 10/21 1200 AC 10/25 INH 0645 Melatonin 10 MG AT BEDTIME 10/24 2100 AC 10/24 PO 2129 Melatonin 5 MG AT BEDTIME 10/21 2100 DC 10/23 PO 2121 Methylprednisolone 40 MG BID 10/24 2100 DC 10/24 IV 2127 Methylprednisolone 40 MG 0900,1700,0100 10/23 1700 DC 10/24 IV 0834 Montelukast Sodium 10 MG AT BEDTIME 10/23 2100 AC 10/24 PO 2129 Nicotine 21 MG DAILY 10/22 1045 AC 10/25 TOP 0818 Omeprazole 40 MG DAILY AC 10/21 1350 AC 10/25 PO 0548 Oxycodone/ 1 TAB ONCE ONE 10/24 1630 DC 10/24 Acetaminophen PO 10/24 1631 1628 Oxycodone/ 1 TAB ONCE PRN 10/23 0730 AC 10/25 Acetaminophen PO 0029 Prednisone 10 MG DAILY 10/28 899 AC PO 10/29 0859 Prednisone 20 MG DAILY 10/27 899 AC PO 10/29 0759 Prednisone 30 MG DAILY 10/26 899 AC PO 10/27 0859 Prednisone 40 MG DAILY 10/25 09 CAN PO 10/29 0859 Prednisone 40 MG DAILY 10/25 09 DC PO 10/26 0859 Prednisone 40 MG DAILY 10/25 09 AC PO 10/26 0859 Senna/Docusate Sodium 2 TAB DAILY 10/25 0900 AC 10/25 PO 0818 Last 24 Hrs of Lab/Manuel Results Last 24 Hrs of Labs/Mics: Laboratory Tests 10/25/17 0741: CBC w Diff Pending, WBC Pending, RBC Pending, Hgb Pending, Hct Pending, MCV Pending, MCH Pending, MCHC Pending, RDW Pending, Plt Count Pending, MPV Pending, Gran % Pending, Lymphocytes % Pending, Monocytes % Pending, Eosinophils % Pending, Basophils % Pending, Absolute Granulocytes Pending, Absolute Lymphocytes Pending, Absolute Monocytes Pending, Absolute Eosinophils Pending, Absolute Basophils Pending Microbiology 10/24 181 LOWER RESP: Respiratory Culture - COLB 10/24 181 LOWER RESP: Gram Stain - COLB 10/24 1325 URINE ROUT: Legionella Antigen - COMP Assessment/Plan Assessment: 42-year-old woman current heavy smoker, not on regular meds, with past medical history significant for asthma diagnosed in childhood and severe seasonal allergies coming in for evaluation of worsening shortness of breath since the past 1 week. Problem List: 1. Asthma Exacerbation 2. Leukocytosis 3. Headache #Asthma Exacerbation: History of asthma, severe exacerbation due to environmental factors. Elevated (253) IgE levels. -Continue steroid taper -symbicort 160/2.5mcg 2 puffs BID -singular 10mg daily -TRC/neds as needed -Robitussim w/ Codeine Q4 -Pulm consult: Evaluate sputum C&S and eosinophils. Repeat chest x-ray with persistent symptoms. #Leukocytosis: Recent elevation in WBC at 15.4 today, up from 12.3 at admission. most likely 2/2 steroid administration. Patient is asymptomatic -Continue to monitor CBC #Headache-possible lack of sleep vs tension vs h/o headache;stress induced - Celebrex 200mg - IV tylenol for generalized pain Diet: Regular DVT Prophylaxis: SC Lovenox Code Status: Full Code Problem List: 1. Status asthmaticus Pain Ratin Pain Location: abdomen Pain Goal: Remain pain free Pain Plan: iv tylenol Tomorrow's Labs & Rationales: cbc
[2017-10-25 09:24] LABS: ABSOLUTE BASOPHIL COUNT 0 /CUMM (0.0-0.2); ABSOLUTE EOSINOPHIL COUNT 0 /CUMM (0.0-0.7); ABSOLUTE GRANULOCYTE CT 13.3 /CUMM (1.4-6.5); ABSOLUTE LYMPH COUNT 1.2 /CUMM (1.2-3.4); ABSOLUTE MONOCYTE COUNT 0.9 /CUMM (0.10-0.60); BASOPHIL % 0.1 % (0.0-2.0); EOSINOPHIL % 0 % (0-5); HEMATOCRIT 38.8 % (37-47); MEAN CORPUSCULAR HGB CONC 32.8 G/DL (33.0-37.0); MEAN CORPUSCULAR VOLUME 88.4 FL (81.0-99.0); MEAN PLATELET VOLUME 9.3 FL (7.4-10.4); PLATELET COUNT 372 /CUMM (130-400); RBC DISTRIBUTION WIDTH 14.1 % (11.5-14.5); RED BLOOD CELL CT 4.39 /CUMM (4.20-5.40); WHITE BLOOD CELL COUNT 15.4 /CUMM (4.8-10.8)
[2017-10-25 10:57] LABS: GRANULOCYTE % 86.6 % (42.2-75.2)
[2017-10-25 14:49] VITALS: BP 140/82
--- NOTE | 2017-10-25 15:47 | PN- Pulmonary ---
Subjective HPI/Critical Care Issues: Improved with no sig wheezing Had episode of confusion last night which quickly cleared Complains of constipation Objective Current Medications: Current Medications Sig/Jack Start time Last Medication Dose Route Stop Time Status Admin Acetaminophen 1,000 MG Q8P PRN 10/25 1300 AC PO Acetaminophen 1,000 MG Q6P PRN 10/25 1145 AC N/A 1 UNIT IV Acetaminophen 1,000 MG ONCE ONE 10/25 0645 DC 10/25 N/A 1 UNIT IV 10/25 0659 0747 Acetaminophen 500 MG Q6P PRN 10/22 1830 DC 10/25 PO 0329 Acetaminophen/ 1 TAB Q4P PRN 10/24 1100 DC 10/25 Butalbital/Caffeine PO 0745 Albuterol Sulfate 3 ML EVERY 4 HRS/AWAKE 10/21 1200 AC 10/25 INH 1125 Albuterol Sulfate 2 PUF Q4 PRN 10/21 0200 AC 10/24 INH 1339 Benzocaine/Menthol 1 KAITLYNN Q1 NEEDED PRN 10/23 1445 AC PO Benzonatate 100 MG TID 10/21 2220 AC 10/25 PO 1432 Budesonide/ 2 PUF BID 10/23 1022 AC 10/25 Formoterol Fumarate INH 0818 Celecoxib 200 MG BID PRN 10/25 2100 AC PO Celecoxib 200 MG ONCE ONE 10/25 1100 DC 10/25 PO 10/25 1101 1141 Diphenhydramine HCl 25 MG Q6P PRN 10/25 1000 AC 10/25 PO 1141 Docusate Sodium 100 MG DAILY 10/24 2345 AC 10/25 PO 0028 Enoxaparin Sodium 40 MG DAILY 10/21 0900 AC 10/24 SC 0834 Guaifenesin/Codeine 10 ML Q4 PRN 10/25 0954 AC Phosphate PO Guaifenesin/Codeine 10 ML Q3P PRN 10/24 1245 DC 10/25 Phosphate PO 0608 Ipratropium [place] 2.5 ML EVERY 4 HRS/AWAKE 10/21 1200 AC 10/25 INH 1125 Melatonin 10 MG AT BEDTIME 10/24 2100 AC 10/24 PO 2129 Melatonin 5 MG AT BEDTIME 10/21 2100 DC 10/23 PO 2121 Methylprednisolone 40 MG BID 10/24 2100 DC 10/24 IV 2127 Montelukast Sodium 10 MG AT BEDTIME 10/23 2100 AC 10/24 PO 2129 Nicotine 21 MG DAILY 10/22 1045 AC 10/25 TOP 0818 Omeprazole 40 MG DAILY AC 10/21 1350 AC 10/25 PO 0548 Oxycodone/ 1 TAB ONCE ONE 10/24 1630 DC 10/24 Acetaminophen PO 10/24 1631 1628 Oxycodone/ 1 TAB ONCE PRN 10/23 0730 AC 10/25 Acetaminophen PO 0029 Patient Medication 1 ED ONE ONE 10/25 1245 DC Teaching ED 10/25 1246 Prednisone 10 MG DAILY 10/28 899 AC PO 10/29 0859 Prednisone 20 MG DAILY 10/27 09 AC PO 10/28 0859 Prednisone 30 MG DAILY 10/26 09 AC PO 10/27 0859 Prednisone 40 MG DAILY 10/25 09 CAN PO 10/29 0859 Prednisone 40 MG DAILY 10/25 09 DC PO 10/26 0859 Prednisone 40 MG DAILY 10/25 0900 AC 10/25 PO 10/26 0859 1052 Senna/Docusate Sodium 2 TAB DAILY 10/25 09 AC 10/25 PO 0818 Vital Signs & I&O Last 24 Hrs of Vitals and I&O: Vital Signs Date Time Temp Pulse Resp B/P B/P Pulse O2 O2 Flow FiO2 Mean Ox Delivery Rate 10/25 1449 98.4 94 16 140/82 98 Room Air 10/25 1126 96 Room Air Room Air 10/25 0700 Room Air 10/25 0658 98.2 80 20 140/96 96 10/25 0000 96 Room Air 10/24 2245 98.5 74 20 132/70 98 Nasal 2.0L Cannula 10/24 2138 98.0 96 18 142/92 96 Room Air 10/24 1649 97 Room Air 10/24 1600 Room Air Room Air Intake & Output 10/25 1600 10/25 0800 10/25 0000 Intake Total 750 180 480 Output Total 450 Balance 300 180 480 Intake, Oral 750 180 480 Output, Urine 450 Impression/Plan Impression/Plan Impression/Plan: MONTY EOMI Chest clear no wheezing s1s2 no murmur 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 No history suggestive of active infection. May be worsening extrinsic asthma as she has had previous eosinophilia. 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
[2017-10-25 22:33] VITALS: BP 170/105
[2017-10-25 22:45] VITALS: BP 148/86
[2017-10-26 06:57] VITALS: BP 150/84
--- NOTE | 2017-10-26 07:23 | PN- Gen Med ---
See Addendum Assessment/Plan Medical Assessment: 42-year-old woman current heavy smoker, not on regular meds, with past medical history significant for asthma diagnosed in childhood and severe seasonal allergies coming in for evaluation of worsening shortness of breath since the past 1 week. Problem List: 1. Asthma Exacerbation 2. Leukocytosis 3. Headache Problem List: 1. Status asthmaticus Plan: #Asthma Exacerbation: History of asthma, severe exacerbation due to environmental factors. Elevated (253) IgE levels. -Continue steroid taper -symbicort 160/2.5mcg 2 puffs BID -singular 10mg daily -TRC/neds as needed -Robitussim w/ Codeine Q4 -Pulm consult: Evaluate sputum C&S and eosinophils. Repeat chest x-ray with persistent symptoms. #Leukocytosis: WBC 16.0, with yesterday value of 15.4, up from 12.3 at admission. most likely 2/2 steroid administration. Patient is asymptomatic -Continue to monitor CBC #Headache-possible lack of sleep vs tension vs h/o headache;stress induced - Celebrex 200mg - IV tylenol for generalized pain Diet: Regular DVT Prophylaxis: SC Lovenox Code Status: Full Code Subjective Follow-up For: Asthma exacerbation Subjective: Patient complains of progressive cough that has persisted for the past few days. Patient denies sputum production but states it is hard to bring anything up. Patient states she "can not catch her breath" and reports wheezing. Pt. repots she feels her lungs are improving but her airways are still inflamed. Patient reports abdominal pain with coughing. Patient states she is constipated and has not had a BM since last week. Patient reports headache and lightheadedness but denies chest pain, fever, chills, and n/v. Review of Systems Constitutional: Reports: see HPI. Objective Last 24 Hrs of Vital Signs/I&O Vital Signs Date Time Temp Pulse Resp B/P B/P Pulse O2 O2 Flow FiO2 Mean Ox Delivery Rate 10/26 0657 98.5 92 20 150/84 96 Room Air 10/25 2245 148/86 10/25 2233 98.9 87 18 170/105 98 Room Air 10/25 1600 Room Air 10/25 1600 97 Room Air 10/25 1449 98.4 94 16 140/82 98 Room Air 10/25 1126 96 Room Air Room Air Intake & Output 10/26 0800 10/26 0000 10/25 1600 Intake Total 120 240 750 Output Total 450 Balance 120 240 300 Intake, Oral 120 240 750 Output, Urine 450 Physical Exam General Appearance: Alert, Oriented X3, Moderate Distress Skin: No Rashes, No Breakdown HEENT: Atraumatic (maxillary sinus tender, r>l) Neck: Supple, No JVD Cardiovascular: Normal S1, Normal S2, No Murmurs Lungs: wheezing b/l lung newsome Abdomen: Normal Bowel Sounds, Soft Current Medications: Current Medications Sig/Jack Start time Last Medication Dose Route Stop Time Status Admin Acetaminophen 1,000 MG Q8P PRN 10/25 1300 AC PO Acetaminophen 1,000 MG Q6P PRN 10/25 1145 DC 10/26 N/A 1 UNIT IV 0359 Acetaminophen 500 MG Q6P PRN 10/22 1830 DC 10/25 PO 0329 Acetaminophen/ 1 TAB Q4P PRN 10/24 1100 DC 10/25 Butalbital/Caffeine PO 0745 Albuterol Sulfate 3 ML BID 10/26 0900 AC 10/26 INH 0736 Albuterol Sulfate 3 ML EVERY 4 HRS/AWAKE 10/21 1200 DC 10/25 INH 1556 Albuterol Sulfate 2 PUF Q4 PRN 10/21 0200 AC 10/24 INH 1339 Benzocaine/Menthol 1 KAITLYNN Q1 NEEDED PRN 10/23 1445 AC PO Benzonatate 100 MG TID 10/21 2220 AC 10/26 PO 0859 Bisacodyl 5 MG ONE ONE 10/26 0800 DC 10/26 PO 10/26 0801 0900 Bisacodyl 10 MG DAILY PRN 10/26 0800 AC ND Budesonide/ 2 PUF BID 10/23 1022 AC 10/26 Formoterol Fumarate INH 0900 Celecoxib 200 MG BID 10/26 0900 AC 10/26 PO 0900 Celecoxib 200 MG BID PRN 10/25 2100 DC PO 10/26 0859 Celecoxib 200 MG ONCE ONE 10/25 1100 DC 10/25 PO 10/25 1101 1141 Diphenhydramine HCl 25 MG Q6P PRN 10/25 1000 DC 10/25 PO 2205 Docusate Sodium 100 MG DAILY 10/24 2345 AC 10/26 PO 0859 Enoxaparin Sodium 40 MG DAILY 10/21 0900 AC 07/29 SC 0834 Guaifenesin/Codeine 10 ML Q4 PRN 10/25 0954 AC 10/26 Phosphate PO 0416 Hydralazine HCl 25 MG ONE TIME ONE 10/25 2330 CAN PO 10/25 2331 Ipratropium [place] 2.5 ML EVERY 4 HRS/AWAKE 10/21 1200 DC 10/25 INH 1556 Melatonin 10 MG AT BEDTIME 10/24 2100 DC 10/24 PO 2129 Montelukast Sodium 10 MG AT BEDTIME 10/23 2100 AC 10/25 PO 2204 Nicotine 21 MG DAILY 10/22 1045 AC 10/26 TOP 0859 Omeprazole 40 MG DAILY AC 10/21 1350 AC 10/26 PO 0618 Oxycodone HCl 5 MG ONE TIME PRN 10/25 1645 DC 10/25 PO 2205 Oxycodone/ 1 TAB ONCE PRN 10/23 0730 DC 10/25 Acetaminophen PO 0029 Patient Medication 1 ED ONE ONE 10/25 1245 DC 10/25 Teaching ED 10/25 1246 2204 Polyethylene Glycol 17 GM DAILY 10/25 2025 AC 10/26 PO 0859 Prednisone 10 MG DAILY 10/28 0900 AC PO 10/29 0859 Prednisone 20 MG DAILY 10/27 09 AC PO 10/28 0859 Prednisone 30 MG DAILY 10/26 0900 AC 10/26 PO 10/27 0859 0859 Prednisone 40 MG DAILY 10/25 0900 DC 10/25 PO 10/26 0859 1052 Ramelteon 8 MG AT BEDTIME NEED.. 10/25 2030 AC 10/25 PO 2209 Senna/Docusate Sodium 2 TAB DAILY 10/25 0900 AC 10/26 PO 0859 Tiotropium [place] 1 PUF DAILY 10/26 0900 AC 10/26 INH 0859 Last 24 Hrs of Labs/Mics: Laboratory Tests 10/26/17 0810: Anion Gap 12, Estimated GFR > 60, BUN/Creatinine Ratio 11.7, Total Bilirubin 0.2 , Direct Bilirubin 0.2, AST 18, ALT 30, Alkaline Phosphatase 56, Total Protein 5.8 L, Albumin 3.2 L 10/26/17 0640: CBC w Diff NO MAN DIFF REQ, RBC 4.30, MCV 88.2, MCH 29.1, MCHC 33.0, RDW 14.0, MPV 8.9, Gran % 72.5, Lymphocytes % 21.0, Monocytes % 5.9, Eosinophils % 0.4, Basophils % 0.2, Absolute Granulocytes 11.6 H, Absolute Lymphocytes 3.4, Absolute Monocytes 0.9 H, Absolute Eosinophils 0.1, Absolute Basophils 0 Microbiology 10/26 829 LOWER RESP: Respiratory Culture - RECD 10/26 829 LOWER RESP: Gram Stain - RECD
[2017-10-26 08:47] LABS: ABSOLUTE BASOPHIL COUNT 0 /CUMM (0.0-0.2); ABSOLUTE EOSINOPHIL COUNT 0.1 /CUMM (0.0-0.7); ABSOLUTE GRANULOCYTE CT 11.6 /CUMM (1.4-6.5); ABSOLUTE LYMPH COUNT 3.4 /CUMM (1.2-3.4); ABSOLUTE MONOCYTE COUNT 0.9 /CUMM (0.10-0.60); BASOPHIL % 0.2 % (0.0-2.0); EOSINOPHIL % 0.4 % (0-5); GRANULOCYTE % 72.5 % (42.2-75.2); HEMATOCRIT 37.9 % (37-47); MEAN CORPUSCULAR HGB 29.1 PG (27.0-31.0); MEAN CORPUSCULAR VOLUME 88.2 FL (81.0-99.0); MEAN PLATELET VOLUME 8.9 FL (7.4-10.4); PLATELET COUNT 339 /CUMM (130-400)
[2017-10-26] MEDS ORDERED: SPIRIVA18 MCG INH ×2 (10:49→10:53)
[2017-10-26] MEDS ORDERED: MONTELUKAST SOD10 M1 PO ×2 (10:49→10:53)
[2017-10-26] MEDS ORDERED: PREDNISONE10 M2 PO ×2 (10:49→10:53)
--- NOTE | 2017-10-26 10:51 | Patient Discharge Instructions ---
Discharge Instructions General Discharge Information You were seen/treated for: COPD/Asthma exacerbation Watch for these problems: Fever, chest eldridge, shortness of breath Special Instructions: Please take all medications as directed. Please follow up with primary care and pulmnology. Diet Continue normal diet: Yes Activity Full Activity/No Limits: Yes Acute Coronary Syndrome Inclusion Criteria At DC or during hospital stay patient has or had the following: ACS DIAGNOSIS No Discharge Core Measures Meds if any: Prescribed or Continued at Discharge Meds if any: NOT Prescribed or Continued at Discharge Congestive Heart Failure Inclusion Criteria At DC or during hospital stay patient has or had the following: CHF DIAGNOSIS No Discharge Core Measures Meds if any: Prescribed or Continued at Discharge Meds if any: NOT Prescribed or Continued at Discharge Cerebrovascular accident Inclusion Criteria At DC or during hospital stay patient has or had the following: CVA/TIA Diagnosis No Discharge Core Measures Meds if any: Prescribed or Continued at Discharge Meds if any: NOT Prescribed or Continued at Discharge Venous thromboembolism Inclusion Criteria VTE Diagnosis No VTE Type NONE VTE Confirmed by (Test) NONE Discharge Core Measures - Per Current guidelines, there needs to be overlap - treatment for the first 5 days of Warfarin therapy. - If discharged on Warfarin prior to 5 days of - overlap therapy, the patient will need to be - assessed for post discharge needs including - *Post discharge parental anticoagulation - *Warfarin and/or parental anticoagulation education - *Follow up date to check INR post discharge At least 5 days overlap therapy as Inpatient No Meds if any: Prescribed or Continued at Discharge Note: Overlap Therapy is Warfarin and Anticoagulant Meds if any: NOT Prescribed or Continued at Discharge
[2017-10-26] MEDS ORDERED: SYMBICORT 16010.2 GM INH (13:14)
[2017-10-26] MEDS ORDERED: BENZONATATE100 M1 PO (13:14)
[2017-10-26] MEDS ORDERED: OMEPRAZOLE20 M2 PO (13:14)
--- NOTE | 2017-10-26 15:34 | PN- Pulmonary ---
Subjective HPI/Critical Care Issues: stable Objective Current Medications: Current Medications Sig/Jack Start time Last Medication Dose Route Stop Time Status Admin Acetaminophen 1,000 MG Q8P PRN 10/25 1300 DCD 10/26 PO 1302 Acetaminophen 1,000 MG Q6P PRN 10/25 1145 DC 10/26 N/A 1 UNIT IV 0359 Albuterol Sulfate 3 ML BID 10/26 0900 DCD 10/26 INH 0736 Albuterol Sulfate 3 ML EVERY 4 HRS/AWAKE 10/21 1200 DC 10/25 INH 1556 Albuterol Sulfate 2 PUF Q4 PRN 10/21 0200 DCD 10/24 INH 1339 Benzocaine/Menthol 1 KAITLYNN Q1 NEEDED PRN 10/23 1445 DCD PO Benzonatate 100 MG TID 10/21 2220 DCD 10/26 PO 0859 Bisacodyl 5 MG ONE ONE 10/26 0800 DC 10/26 PO 10/26 0801 0900 Bisacodyl 10 MG DAILY PRN 10/26 0800 DCD 10/26 CT 1103 Budesonide/ 2 PUF BID 10/23 1022 DCD 10/26 Formoterol Fumarate INH 0900 Celecoxib 200 MG BID 10/26 0900 DCD 10/26 PO 0900 Celecoxib 200 MG BID PRN 10/25 2100 DC PO 10/26 0859 Diphenhydramine HCl 25 MG Q6P PRN 10/25 1000 DC 10/25 PO 2205 Docusate Sodium 100 MG DAILY 10/24 2345 DCD 10/26 PO 0859 Enoxaparin Sodium 40 MG DAILY 10/21 0900 DCD 10/24 SC 0834 Guaifenesin/Codeine 10 ML Q4 PRN 10/25 0954 DCD 10/26 Phosphate PO 0416 Hydralazine HCl 25 MG ONE TIME ONE 10/25 2330 CAN PO 10/25 2331 Ipratropium [place] 2.5 ML EVERY 4 HRS/AWAKE 10/21 1200 DC 10/25 INH 1556 Melatonin 10 MG AT BEDTIME 10/24 2100 DC 10/24 PO 2129 Montelukast Sodium 10 MG AT BEDTIME 10/23 2100 DCD 10/25 PO 2204 Nicotine 21 MG DAILY 10/22 1045 DCD 10/26 TOP 0859 Omeprazole 40 MG DAILY AC 10/21 1350 DCD 10/26 PO 0618 Oxycodone HCl 5 MG ONE TIME PRN 10/25 1645 DC 10/25 PO 2205 Oxycodone/ 1 TAB ONCE PRN 10/23 0730 DC 10/25 Acetaminophen PO 0029 Polyethylene Glycol 17 GM DAILY 10/25 2024 DCD 10/26 PO 0859 Prednisone 10 MG DAILY 10/28 899 DCD PO 10/29 0859 Prednisone 20 MG DAILY 10/27 899 DCD PO 10/28 0859 Prednisone 30 MG DAILY 10/26 09 DCD 10/26 PO 10/27 0859 0859 Prednisone 40 MG DAILY 10/25 09 DC 10/25 PO 10/26 0859 1052 Ramelteon 8 MG AT BEDTIME NEED.. 10/25 2030 DCD 10/25 PO 2209 Senna/Docusate Sodium 2 TAB DAILY 10/25 09 DCD 10/26 PO 0859 Tiotropium [place] 1 PUF DAILY 10/26 09 DCD 10/26 INH 0859 Vital Signs & I&O Last 24 Hrs of Vitals and I&O: Vital Signs Date Time Temp Pulse Resp B/P B/P Pulse O2 O2 Flow FiO2 Mean Ox Delivery Rate 10/26 0800 95 Room Air 10/26 0756 98 Room Air Room Air 10/26 0657 98.5 92 20 150/84 96 Room Air 10/25 2245 148/86 10/25 2233 98.9 87 18 170/105 98 Room Air 10/25 1600 Room Air 10/25 1600 97 Room Air Intake & Output 10/26 1600 10/26 0800 10/26 0000 Intake Total 810 120 240 Output Total Balance 810 120 240 Intake, IV 10 Intake, Oral 800 120 240 Number 1 Bowel Movements Impression/Plan Impression/Plan Impression/Plan: MONTY EOMI Chest clear no wheezing s1s2 no murmur 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 No history suggestive of active infection. May be worsening extrinsic asthma as she has had previous eosinophilia. 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
== END 2017-10-26 15:08 | DRG 141 ==
LOC: ERH 20:55 → CRI 10-21 00:09 → ERHI 10-21 00:09 → ENRESERV 10-21 00:40 → CRI 10-21 01:52 → ENTRNSPT 10-22 14:45 → EDTRNSPTSTS 10-22 14:49 → EDTRNSPT 10-22 14:51 → 2NB 10-22 15:19 → CMPTRNSPT 10-22 15:26 → 2NB 10-25 11:39 → ENPENDDIS 10-26 10:49 → ENTRNSPT 10-26 14:46 → CMPTRNSPT 10-26 15:05 → 2NB 10-26 15:08
PROVIDERS: Emergency Medicine; Hospitalist; Internal Medicine
DX: J45.902 Unspecified asthma with status asthmaticus (principal); J45.51 Severe persistent asthma with (acute) exacerbation; E66.9 Obesity, unspecified; Z68.33 Body mass index [BMI] 33.0-33.9, adult; F12.90 Cannabis use, unspecified, uncomplicated; D72.1 Eosinophilia; F17.210 Nicotine dependence, cigarettes, uncomplicated; E78.5 Hyperlipidemia, unspecified; D64.9 Anemia, unspecified; R51 Headache; D72.829 Elevated white blood cell count, unspecified
CPT/HCPCS: 2NBP; CCU; 36415; 71045; 80307; 81025; 82436; 87070; 87449; 93005; 93010; 94644; 96374; 96375; 99291; J0131; J1650; J1885; J2920; J2930; J3490; J7512